=== PATIENT | male | born 1935 | race African-American/Black ===

== ENCOUNTER 2019-06-17 22:54 | Emergency (ER) | payer OTHER, MEDICARE ==
[~2019-06-17] VITALS: Ht 175.3 cm; Wt 83.9 kg
[2019-06-17] MEDS ORDERED: QUETIAPINE FUMA50 MG ORAL (23:06)
[2019-06-17] MEDS ORDERED: METFORMIN HCL500 M1 ORAL (23:06)
[2019-06-17] MEDS ORDERED: ATORVASTATIN CA40 MG ORAL (23:06)
[2019-06-17] MEDS ORDERED: FLOMAX0.4 MG ORAL (23:06)
[2019-06-17] MEDS ORDERED: LEXAPRO5 MG ORAL (23:06)
[2019-06-17] MEDS ORDERED: CARVEDILOL3.125 MG ORAL (23:06)
[2019-06-17] MEDS ORDERED: WARFARIN SODIUM2 MG ORAL (23:07)
--- NOTE | 2019-06-17 23:14 | Emergency Room Report ---
History of Present Illness General Chief Complaint: Generalized Weakness Source: Patient, Medical Record Present Illness HPI Is an 83-year-old male with a history of major depressive disorder, diabetes, CAD and heart failure. He resides in assisted living. He presents with chief complaint of chest pain. Initially he was yelling in his room and staff checked on him. He complained of chest pain to them. They called 911. He denies any chest pain to the building serviceman. Here he complained of headache. He said is been ongoing for a while. No trauma. Denies any fever or chills. Also with a cough. Told building serviceman that he has body pain. History is vague in this patient. He is a poor historian. He does not know what is taking other than warfarin. Unable to give me duration of his symptoms other than is been going on for a while. He has no trauma. He has no focal deficit. Allergies: Coded Allergies: LOVASTATIN (Verified Allergy, Unknown, 06/17/19) Uncoded Allergies: NSAIDS (Allergy, Unknown, 06/17/19) Patient History Past Medical History: see triage record, old chart reviewed, HTN, CAD Past Surgical History: other Pertinent Family History: none Social History: Denies: smoking Immunizations: other Reviewed Nursing Documentation: PMH: Agreed; PSxH: Agreed Nursing Documentation-PMH Hx Cardiac Problems: Yes - ahterosclerosis of aorta, CHF with reduced LVEF Hx Diabetes: Yes History Of Psychiatric Problem: Yes - depression Review of Systems Eye: Denies: eye pain, blurred vision ENT: Denies: ear pain, nose congestion, throat swelling Respiratory: Denies: cough, shortness of breath Cardiovascular: Reports: chest pain; Denies: palpitations Gastrointestinal: Denies: abdominal pain, diarrhea, nausea, vomiting Musculoskeletal: Denies: back pain, joint pain Skin: Denies: rash Neurological: Reports: headache; Denies: numbness Endocrine: Denies: increased thirst, increased urine Hematologic/Lymphatic: Denies: easy bruising All Other Systems: limited - Poor historian Physical Exam Vital Signs Date Time Temp Pulse Resp B/P (MAP) Pulse Ox O2 Delivery O2 Flow Rate FiO2 06/17/19 22:56 98.1 66 18 158/87 (110) 99 Room Air Vitals with high blood pressure Sp02 EP Interpretation: reviewed, normal General Appearance: well appearing, no apparent distress, alert Head: normocephalic, atraumatic Eyes: bilateral eye PERRL, bilateral eye EOMI ENT: hearing grossly normal, normal pharynx Neck: full range of motion, supple, no meningismus Respiratory: chest non-tender, lungs clear, normal breath sounds Cardiovascular #1: regular rate, rhythm, no murmur Gastrointestinal: normal bowel sounds, non tender, no mass, no organomegaly, no bruit, non-distended Musculoskeletal: back normal, normal range of motion, gait/station normal Psychiatric: mood/affect normal Medical Decision Making Diagnostic Impression: Primary Impression: Episode of generalized weakness Additional Impression: Headache Qualified Codes: G44.209 - Tension-type headache, unspecified, not intractable ER Course Patient complained of generalized weakness and headache. Markable. INR therapeutic. No evidence of ACS, PE, dissection. No evidence of infection. I suspect this may be more depression related. Headache better. Will discharge home. EKG Diagnostic Results Rate: normal Rhythm: NSR ST Segments: no acute changes Rhythm Strip Diag. Results EP Interpretation: yes Rate: 65 Rhythm: NSR, no PVC's, no ectopy Chest X-Ray Diagnostic Results Chest X-Ray Diagnostic Results : Chest X-Ray Ordered: Yes # of Views/Limited/Complete: 1 View Indication: Chest Pain EP Interpretation: Yes Interpretation: no consolidation, no effusion, no pneumothorax, no acute cardiopulmonary disease Impression: No acute disease Electronically Signed by: Hernandez Faria MD CT/MRI/US Diagnostic Results CT/MRI/US Diagnostic Results : Imaging Test Ordered: CT head Impression Read by radiologist. Negative. Last Vital Signs Date Time Temp Pulse Resp B/P (MAP) Pulse Ox O2 Delivery O2 Flow Rate FiO2 06/17/19 22:56 98.1 66 18 158/87 (110) 99 Room Air Status: improved Disposition: HOME, SELF-CARE Condition: Stable Scripts Acetaminophen With Codeine (T#3) (TYLENOL #3 TAB*) Y Tab 1 TAB ORAL Q8H PRN for For Pain, #20 TAB Prov: Hernandez Faria MD 06/18/19 Additional Instructions: Follow up with in 7 days. Return if worse. Hernandez Faria MD Jun 17, 2019 23:14
[2019-06-17] MEDS ORDERED: HYDROcodone/Acetamin 5/325 tab ORAL ONE (23:15)
--- NOTE | 2019-06-17 23:15 | NUR ---
ED Nurse Note: Recieved pt BIBA from SNF with c/o headache for past 3 days, was also reported chest pain but pt constantly denies, denied to ambulance also, pt is awake, alert and orienteed x 4, pt rates paina t 10/10 and states its throbbing, pt states he is concerned because he couldnt get meds because he is on coumadin and his sister from [facility] recently, pt denies chest pain, sob or any other complaints, tp gowned, placed on monitoring, and IV line with labs done, will resume care as ordered and closely monitor.
[2019-06-17 23:45] LABS: BASOPHILS % (AUTO) 1.2 % (0.0-2.0); EOSINOPHILS % (AUTO) 3.7 % (0.0-3.0); HEMATOCRIT 33.1 % (42.0-52.0); HEMOGLOBIN 11.2 G/DL (14.2-18.0); LYMPHOCYTES % (AUTO) 25.9 % (20.0-45.0); MEAN CORPUSCULAR VOLUME 93 FL (80-99); MONOCYTES % (AUTO) 13.4 % (1.0-10.0); NEUTROPHILS % (AUTO) 55.8 % (45.0-75.0); PLATELET COUNT 205 K/UL (150-450); RED BLOOD COUNT 3.56 M/UL (4.70-6.10); RED CELL DISTRIBUTION WIDTH 13.1 % (11.6-14.8); WHITE BLOOD COUNT 7.9 K/UL (4.8-10.8)
[2019-06-17 23:45] LABS: APPEARANCE,URINE CLEAR; BILIRUBIN, URINE NEGATIVE (NEGATIVE); COLOR,URINE PALE YELLOW; GLUCOSE, URINE (UA) NEGATIVE (NEGATIVE); KETONES,URINE NEGATIVE (NEGATIVE); LEUKOCYTE ESTERASE ,URINE NEGATIVE (NEGATIVE); NITRITE,URINE NEGATIVE (NEGATIVE); PH,URINE 5 (4.5-8.0); PROTEIN,URINE NEGATIVE (NEGATIVE); UROBILINOGEN,URINE NORMAL MG/DL (0.0-1.0)
[2019-06-17 23:55] VITALS: BP 146/78
[2019-06-17 23:57] LABS: ANION GAP 13 mmol/L (5-15); BLOOD UREA NITROGEN 29 mg/dL (7-18); CALCIUM 8.5 MG/DL (8.5-10.1); CARBON DIOXIDE 22 MMOL/L (21-32); CHLORIDE 109 MMOL/L (98-107); POTASSIUM 4.5 MMOL/L (3.5-5.1); SODIUM 144 MMOL/L (136-145)
--- NOTE | 2019-06-18 00:02 | Diagnostic Imaging Report ---
Indications: Headache for one day Technique: Spiral acquisitions obtained through the brain. Angled axial and coronal 5 x 5 mm slices were reconstructed. Total dose length product 1179 mGycm. CTDI vol(s) 53 mGy. Dose reduction achieved using automated exposure control Comparison: None. Findings: There is age-related enlargement of the ventricles and extra axial CSF spaces. There is considerable periventricular deep white matter low-attenuation, consistent with chronic microvascular ischemic changes. Old lacunar infarcts are seen in the frontal and parietal deep white matter bilaterally. There is also an old lacunar infarct within the right basal ganglia. Old infarct is seen in the left cerebellar hemisphere. No acute intracranial hemorrhage or edema. No mass effect nor midline shift. Visualized orbits and sinuses are unremarkable. There is minimal mastoid disease on the right. The calvarium is intact Impression: Chronic and age-related changes Multiple old infarcts, as described Negative for acute intracranial bleed or mass effect Incidental finding minimal right mastoid disease This agrees with the preliminary interpretation provided overnight by [facility] service. The CT scanner at [facility] is accredited by the [employer] and the scans are performed using protocols designed to limit radiation exposure to as low as reasonably achievable to attain images of sufficient resolution adequate for diagnostic evaluation.
[2019-06-18 00:08] LABS: ALANINE AMINOTRANSFERASE 23 U/L (12-78); ALBUMIN 3.4 G/DL (3.4-5.0); ALBUMIN/GLOBULIN RATIO 0.9 (1.0-2.7); ALKALINE PHOSPHATASE 72 U/L (46-116); ASPARTATE AMINO TRANSFERASE 17 U/L (15-37); BILIRUBIN,TOTAL 0.2 MG/DL (0.2-1.0)
--- NOTE | 2019-06-18 00:34 | NUR ---
[facility]-attempted to contact someone- no one picked up the phone, call goes to voicemail. Message left regarding pastient is going back by ambulance.If any question- call back number left on voicemai..
[2019-06-18] MEDS ORDERED: ACETAMINOPHEN-1 EAC1 ORAL (00:41)
[2019-06-18 01:40] VITALS: BP 149/69
--- NOTE | 2019-06-18 01:40 | NUR ---
ER DISCHARGE NOTE: Patient is cleared to be discharged per ERMD, pt is aox4, on room air, with stable vital signs. pt was given dc and prescription instructions, pt was able to verbalize understanding, pt id band and iv site removed without complications. pt is transported out of the ED via BLS transport. pt took all belongings.
--- NOTE | 2019-06-18 09:11 | Diagnostic Imaging Report ---
Indication: Shortness of breath Technique: One view of the chest Comparison: none Findings: Inspiration is suboptimal. Lungs and pleural spaces are clear. Heart size is normal. Impression: No acute process
== END 2019-06-18 01:40 | disposition home or self-care (01) ==
LOC: EDBD 22:54 → EMR 23:15
DX: R53.1 Weakness (principal); G44.209 Tension-type headache, unspecified, not intractable; I11.9 Hypertensive heart disease without heart failure; E11.9 Type 2 diabetes mellitus without complications; F32.9 Major depressive disorder, single episode, unspecified
CPT/HCPCS: 36415; 70450; 71045; 80053; 81003; 83880; 84484; 85025; 85610; 85730; 93005; 99284

== ENCOUNTER 2019-12-10 10:43 | Emergency (ER) | payer MEDICARE, OTHER ==
[~2019-12-10] VITALS: Ht 182.9 cm; Wt 79.4 kg
[~2019-12-10 10:43] MED LIST: ACETAMINOPHEN-1 EAC1 ORAL; ATORVASTATIN CA40 MG ORAL; CARVEDILOL3.125 MG ORAL; FLOMAX0.4 MG ORAL; LEXAPRO5 MG ORAL; METFORMIN HCL500 M1 ORAL; QUETIAPINE FUMA50 MG ORAL; WARFARIN SODIUM2 MG ORAL
[2019-12-10] MEDS ORDERED: ESCITALOPRAM OX10 MG ORAL (10:46)
[2019-12-10 10:50] VITALS: BP 130/80
[2019-12-10] MEDS ORDERED: LORazepam Inj 2mg/ml 1ml IV ONE (11:45)
--- NOTE | 2019-12-10 12:08 | Diagnostic Imaging Report ---
Indication: Altered mental status Technique: spiral acquisitions obtained through the brain. Angled axial and coronal 5 x 5 mm slices were reconstructed. No IV contrast utilized. Radiation dose was minimized using automated exposure control Total dose length product 1018 mGycm. CTDIvol(s) 53 mGy Comparison: 06/17/2019 FINDINGS: No acute hemorrhage or edema. No mass effect or midline shift. There is age-related enlargement of the ventricles and extra axial CSF spaces. There is periventricular deep white matter ischemic change. Normal duque-white differentiation. Visualized orbits are unremarkable. Visualized sinuses are unremarkable. Intact calvarium. Oh lacunar infarcts are seen in the right hemphill radiata, left hemphill radiata and anterior left basal ganglia. Findings are unchanged IMPRESSION: Chronic and age-related changes. Negative for acute intracranial bleed or mass effect The CT scanner at [facility] is accredited by the [employer] and the scans are performed using protocols designed to limit radiation exposure to as low as reasonably achievable to attain images of sufficient resolution adequate for diagnostic evaluation
--- NOTE | 2019-12-10 12:10 | Diagnostic Imaging Report ---
Indication: Shortness of breath Technique: One view of the chest Comparison: 06/17/2019 Findings: The right costophrenic angle is cut off exam. Per technologist, patient did not wish to have the exam repeated. There is slight blunting of left costophrenic sulcus. The lung and pleural spaces are otherwise clear. The heart is borderline enlarged. Impression: Possible small left pleural effusion No acute process otherwise
[2019-12-10 12:46] LABS: ANION GAP 9 mmol/L (5-15); BLOOD UREA NITROGEN 20 mg/dL (7-18); CALCIUM 8.4 MG/DL (8.5-10.1); CARBON DIOXIDE 28 MMOL/L (21-32); CHLORIDE 104 MMOL/L (98-107); POTASSIUM 4.8 MMOL/L (3.5-5.1); SODIUM 141 MMOL/L (136-145)
[2019-12-10 12:49] LABS: BASOPHILS % (AUTO) 0.9 % (0.0-2.0); EOSINOPHILS % (AUTO) 1.8 % (0.0-3.0); HEMATOCRIT 40.4 % (42.0-52.0); HEMOGLOBIN 12.1 G/DL (14.2-18.0); LYMPHOCYTES % (AUTO) 28.4 % (20.0-45.0); MEAN CORPUSCULAR VOLUME 100 FL (80-99); NEUTROPHILS % (AUTO) 57.8 % (45.0-75.0); PLATELET COUNT 238 K/UL (150-450); RED BLOOD COUNT 4.05 M/UL (4.70-6.10); RED CELL DISTRIBUTION WIDTH 13.7 % (11.6-14.8); WHITE BLOOD COUNT 7.8 K/UL (4.8-10.8)
[2019-12-10 12:51] LABS: ALANINE AMINOTRANSFERASE 18 U/L (12-78); ALBUMIN 3.6 G/DL (3.4-5.0); ALBUMIN/GLOBULIN RATIO 0.9 (1.0-2.7); ALKALINE PHOSPHATASE 71 U/L (46-116); ASPARTATE AMINO TRANSFERASE 16 U/L (15-37); BILIRUBIN,TOTAL 0.3 MG/DL (0.2-1.0); CKMB 1.2 NG/ML (0.0-3.6); CREATINE KINASE 113 U/L (26-308)
[2019-12-10 13:51] LABS: APPEARANCE,URINE CLEAR; BILIRUBIN, URINE NEGATIVE (NEGATIVE); COLOR,URINE YELLOW; GLUCOSE, URINE (UA) NEGATIVE (NEGATIVE); KETONES,URINE NEGATIVE (NEGATIVE); NITRITE,URINE NEGATIVE (NEGATIVE); PH,URINE 5 (4.5-8.0); PROTEIN,URINE NEGATIVE (NEGATIVE)
[2019-12-10 13:52] LABS: LEUKOCYTE ESTERASE ,URINE 1+ (NEGATIVE); UROBILINOGEN,URINE NORMAL MG/DL (0.0-1.0)
--- NOTE | 2019-12-10 14:02 | Emergency Room Report ---
History of Present Illness General Chief Complaint: Altered Level of Consciousness Source: Medical Record, EMS Present Illness HPI This patient is brought from assisted living facility. Patient became agitated and aggressive towards staff. The patient himself is agitated and has no specific complaints. He states I want to go home. The patient has a history of depression, diabetes and heart failure. There are no other complaints. Allergies: Coded Allergies: LOVASTATIN (Verified Allergy, Unknown, 06/17/19) Uncoded Allergies: NSAIDS (Allergy, Unknown, 06/17/19) COVID-19 Screening Contact w/high risk pt: No Experienced COVID-19 symptoms?: No COVID-19 Testing performed BASKET MENDER: No Patient History Past Medical History: see triage record, DM, CAD, CHF, psych hx Social History: Denies: smoking, alcohol use, drug use Reviewed Nursing Documentation: PMH: Agreed; PSxH: Agreed Nursing Documentation-PMH Hx Cardiac Problems: Yes Hx Hypertension: Yes - high cholesterol Hx Diabetes: Yes History Of Psychiatric Problem: Yes - depression Hx Neurological Problems: Yes - dementia Review of Systems All Other Systems: negative except mentioned in HPI Physical Exam Vital Signs Date Time Temp Pulse Resp B/P (MAP) Pulse Ox O2 Delivery O2 Flow Rate FiO2 12/10/19 10:36 97.9 78 18 130/80 (97) 98 Room Air Sp02 EP Interpretation: reviewed, normal General Appearance: no apparent distress, alert, GCS 15, non-toxic Head: normocephalic, atraumatic Eyes: bilateral eye normal inspection ENT: hearing grossly normal, no angioedema, normal voice Neck: normal inspection, full range of motion Respiratory: chest non-tender, lungs clear, normal breath sounds, no respiratory distress, no retraction, no accessory muscle use, speaking full sentences Cardiovascular #1: regular rate, rhythm, no edema Gastrointestinal: normal bowel sounds, non tender, soft, non-distended, no guarding, no rebound Rectal: deferred Musculoskeletal: back normal, normal range of motion, gait/station normal, non- tender Neurologic: alert, motor strength/tone normal, responsive, speech normal, no focal defects Psychiatric: anxious Medical Decision Making Diagnostic Impression: Primary Impression: Severe dementia ER Course This patient appears to be having exacerbation of his dementia. The assisted living facility is uncomfortable having him at the facility. There is no medical etiology identified. CT of the head is unremarkable. Labs are noncontributory and at this patient's baseline. The patient was combative and agitated during his ED course. He was destructive to the equipment and agitated and "wanting to go home." The patient's dementia needs to be managed and likely this patient needs to be in a geriatric psych lockdown unit. The patient has [facility] insurance and [facility] will arrange transfer to their facility for further evaluation and disposition. This patient was evaluated in the context of the global COVID-19 pandemic, which necessitated consideration that the patient might be at risk for infection with the [id number] virus that causes COVID-19. Institutional protocols and algorithms that pertain to the evaluation of patients at risk for COVID-19 and the state of rapid change based on information released by multiple regulatory bodies including the CDC and federal and state organizations. These policies and algorithms were followed during the patient' s care in the ED. Laboratory Tests Test 12/10/19 11:30 12/10/19 13:07 White Blood Count 7.8 K/UL (4.8-10.8) Red Blood Count 4.05 M/UL (4.70-6.10) L Hemoglobin 12.1 G/DL (14.2-18.0) L Hematocrit 40.4 % (42.0-52.0) L Mean Corpuscular Volume 100 FL (80-99) H Mean Corpuscular Hemoglobin 30.0 PG (27.0-31.0) Mean Corpuscular Hemoglobin Concent 30.1 G/DL (32.0-36.0) L Red Cell Distribution Width 13.7 % (11.6-14.8) Platelet Count 238 K/UL (150-450) Mean Platelet Volume 6.4 FL (6.5-10.1) L Neutrophils (%) (Auto) 57.8 % (45.0-75.0) Lymphocytes (%) (Auto) 28.4 % (20.0-45.0) Monocytes (%) (Auto) 11.0 % (1.0-10.0) H Eosinophils (%) (Auto) 1.8 % (0.0-3.0) Basophils (%) (Auto) 0.9 % (0.0-2.0) Sodium Level 141 MMOL/L (136-145) Potassium Level 4.8 MMOL/L (3.5-5.1) Chloride Level 104 MMOL/L (98-107) Carbon Dioxide Level 28 MMOL/L (21-32) Anion Gap 9 mmol/L (5-15) Blood Urea Nitrogen 20 mg/dL (7-18) H Creatinine 2.0 MG/DL (0.55-1.30) H Estimated Glomerular Filtration Rate 38.9 mL/min (>60) Glucose Level 97 MG/DL (74-106) Lactic Acid Level 2.00 mmol/L (0.4-2.0) Calcium Level 8.4 MG/DL (8.5-10.1) L Total Bilirubin 0.3 MG/DL (0.2-1.0) Aspartate Amino Transferase (AST) 16 U/L (15-37) Alanine Aminotransferase (ALT) 18 U/L (12-78) Alkaline Phosphatase 71 U/L (46-116) Total Creatine Kinase 113 U/L (26-308) Creatine Kinase MB 1.2 NG/ML (0.0-3.6) Creatine Kinase MB Relative Index 1.0 Troponin I 0.000 ng/mL (0.000-0.056) Total Protein 7.7 G/DL (6.4-8.2) Albumin 3.6 G/DL (3.4-5.0) Globulin 4.1 g/dL Albumin/Globulin Ratio 0.9 (1.0-2.7) L Urine Color Yellow Urine Appearance Clear Urine pH 5 (4.5-8.0) Urine Specific [place] 1.010 (1.005-1.035) Urine Protein Negative (NEGATIVE) Urine Glucose (UA) Negative (NEGATIVE) Urine Ketones Negative (NEGATIVE) Urine Blood Negative (NEGATIVE) Urine Nitrite Negative (NEGATIVE) Urine Bilirubin Negative (NEGATIVE) Urine Urobilinogen Normal MG/DL (0.0-1.0) Urine Leukocyte Esterase 1+ (NEGATIVE) H Urine RBC Pending Urine WBC Pending Urine Squamous Epithelial Cells Pending Urine Bacteria Pending EKG Diagnostic Results Rate: normal Rhythm: NSR ST Segments: no acute changes Rhythm Strip Diag. Results EP Interpretation: yes Rate: 60's Rhythm: NSR, no PVC's, no ectopy Chest X-Ray Diagnostic Results Chest X-Ray Diagnostic Results : Chest X-Ray Ordered: Yes # of Views/Limited/Complete: 1 View Indication: Other EP Interpretation: Yes Interpretation: no consolidation, no effusion, no pneumothorax, no acute cardiopulmonary disease Impression: No acute disease Electronically Signed by: Mari Porras DO CT/MRI/US Diagnostic Results CT/MRI/US Diagnostic Results : Imaging Test Ordered: CT head Impression No acute findings. Specifically no intracranial bleed, mass effect or edema. See official report. Last Vital Signs Date Time Temp Pulse Resp B/P (MAP) Pulse Ox O2 Delivery O2 Flow Rate FiO2 12/10/19 10:50 78 18 Room Air 12/10/19 10:50 97.9 130/80 100 Disposition: SHORT-TERM HOSP Condition: Stable Referrals: [facility] (PCP) Mari Porras DO Dec 10, 2019 14:02
[2019-12-10 14:08] VITALS: BP 126/80
[2019-12-10 16:09] VITALS: BP 135/78
[2019-12-10 18:27] VITALS: BP 135/78
== END 2019-12-10 18:47 | disposition short-term general hospital (02) ==
LOC: EDBD 10:43 → EMR 12:00
DX: F03.90 Unspecified dementia, unspecified severity, without behavioral disturbance, psychotic disturbance, mood disturbance, and anxiety (principal); Z88.6 Allergy status to analgesic agent; E11.9 Type 2 diabetes mellitus without complications; E78.00 Pure hypercholesterolemia, unspecified; I50.9 Heart failure, unspecified; I25.10 Atherosclerotic heart disease of native coronary artery without angina pectoris; F32.9 Major depressive disorder, single episode, unspecified
CPT/HCPCS: 36415; 70450; 71045; 80053; 81003; 82550; 82553; 83605; 84484; 85025; 87040; 93005; 96374; 99284; U0002

== ENCOUNTER 2020-02-02 22:16 | Emergency (ER) | payer OTHER ==
[~2020-02-02] VITALS: Ht 185.4 cm; Wt 117.9 kg
[2020-02-02 22:16] VITALS: BP 188/105
[~2020-02-02 22:16] MED LIST changes: +DiphenhydrAMINE 50mg/ml Inj IVP ONE; +EPINEPHrine 1mg/1ml Amp IM ONE; +ESCITALOPRAM OX10 MG ORAL; +Solu-MEDROL 125mg Inj IVP ONE; +Tranexamic Acid 500 MG in NS 55 ML IVPB ONE
--- NOTE | 2020-02-02 22:16 | NUR ---
ED Nurse Note: Pt brought in by ambulance [address] [facility] c/o AMS and no tone in all extremities. Per EMS, LWK was 2100. Pt unable to veberlize. accompanied patient down to imaging with associate professor of radiology and [facility] ems. patient transported from [facility] to [facility] without incident. changed into gown; attached to monitor. vitals stable. iv access established. blood, initial lactic, blood cultures, urine, covid mrsa vre cre swab collected; sent down to lab. all safety measures met.
--- NOTE | 2020-02-02 22:18 | NUR ---
Nurse Note: Code stroke called at 2210. Radiology at pt side, went to CT with primary RN. 123 BS
[2020-02-02] MEDS ORDERED: DiphenhydrAMINE 50mg/ml Inj ONE (22:38)
[2020-02-02] MEDS ORDERED: Solu-MEDROL 125mg Inj ONE (22:38)
[2020-02-02] MEDS ORDERED: EPINEPHrine 1mg/1ml Amp ONE (22:38)
--- NOTE | 2020-02-02 22:44 | NUR ---
ED Nurse Note: rt at bedside for abg
--- NOTE | 2020-02-02 22:46 | Emergency Room Report ---
History of Present Illness General Chief Complaint: Stroke Symptoms Present Illness HPI 84-year-old male with history of schizophrenia on Seroquel, on warfarin for unknown reason, here with mental status and tongue swelling. Patient has a history of hypertension and he is on lisinopril. Patient reportedly was last seen normal at approximately 9 PM. When the nurse at the nursing facility went to check on the patient at about 930 they said that he was altered and had notable tongue swelling. Patient is unable to follow commands secondary to his altered mental status. Allergies: Coded Allergies: LOVASTATIN (Verified Allergy, Unknown, 06/17/19) Uncoded Allergies: NSAIDS (Allergy, Unknown, 06/17/19) COVID-19 Screening Contact w/high risk pt: No Experienced COVID-19 symptoms?: No COVID-19 Testing performed KITCHEN PORTER: No Nursing Documentation-PMH Hx Hypertension: Yes - high cholesterol Hx Diabetes: Yes - type 2 Hx Neurological Problems: Yes - dementia Review of Systems All Other Systems: limited - AMS Physical Exam Vital Signs Date Time Temp Pulse Resp B/P (MAP) Pulse Ox O2 Delivery O2 Flow Rate FiO2 02/02/20 22:10 16 98 Room Air Sp02 EP Interpretation: reviewed, normal Head: normocephalic, atraumatic Eyes: bilateral eye normal inspection, bilateral eye PERRL ENT: other - Severe diffuse tongue swelling. Drooling Neck: full range of motion, supple/symm/no masses Respiratory: chest non-tender, lungs clear, normal breath sounds Cardiovascular #1: regular rate, rhythm, no edema Cardiovascular #2: 2+ carotid (R), 2+ carotid (L), 2+ radial (R), 2+ radial (L), 2+ dorsalis pedis (R), 2+ dorsalis pedis (L) Gastrointestinal: normal bowel sounds, non tender, soft, non-distended, no guarding, no rebound Rectal: deferred Genitourinary: normal inspection, no CVA tenderness Musculoskeletal: back normal, calf tenderness, gait/station normal, non-tender Neurologic: other - Nonverbal, extraocular movements intact in all directions. Patient able to hold arms above head without any apparent difficulty. However will not squeeze overall on command. Able to lift legs off the bed. NIH stroke scale 11 Psychiatric: other - Appears altered, confused Lymphatic: no adenopathy Medical Decision Making Diagnostic Impression: Primary Impression: HALIE inhibitor-aggravated angioedema Additional Impressions: AMS (altered mental status) Angio-edema ER Course Laboratory Tests Test 02/02/20 22:15 02/02/20 22:30 02/02/20 22:40 White Blood Count 11.1 K/UL (4.8-10.8) H Red Blood Count 4.08 M/UL (4.70-6.10) L Hemoglobin 12.6 G/DL (14.2-18.0) L Hematocrit 40.4 % (42.0-52.0) L Mean Corpuscular Volume 99 FL (80-99) Mean Corpuscular Hemoglobin 31.0 PG (27.0-31.0) Mean Corpuscular Hemoglobin Concent 31.2 G/DL (32.0-36.0) L Red Cell Distribution Width 14.0 % (11.6-14.8) Platelet Count 229 K/UL (150-450) Mean Platelet Volume 6.8 FL (6.5-10.1) Neutrophils (%) (Auto) 61.0 % (45.0-75.0) Lymphocytes (%) (Auto) 24.2 % (20.0-45.0) Monocytes (%) (Auto) 10.5 % (1.0-10.0) H Eosinophils (%) (Auto) 3.2 % (0.0-3.0) H Basophils (%) (Auto) 1.1 % (0.0-2.0) Prothrombin Time 11.4 SEC (9.30-11.50) Prothrombin Time INR 1.0 (0.9-1.1) Activated Partial Thromboplast Time 27 SEC (23-33) Sodium Level 141 MMOL/L (136-145) Potassium Level 4.2 MMOL/L (3.5-5.1) Chloride Level 106 MMOL/L (98-107) Carbon Dioxide Level 26 MMOL/L (21-32) Anion Gap 9 mmol/L (5-15) Blood Urea Nitrogen 23 mg/dL (7-18) H Creatinine 2.2 MG/DL (0.55-1.30) H Estimated Glomerular Filtration Rate 34.8 mL/min (>60) Glucose Level 130 MG/DL (74-106) H Calcium Level 8.3 MG/DL (8.5-10.1) L Total Bilirubin 0.3 MG/DL (0.2-1.0) Aspartate Amino Transferase (AST) 15 U/L (15-37) Alanine Aminotransferase (ALT) 16 U/L (12-78) Alkaline Phosphatase 75 U/L (46-116) Troponin I 0.001 ng/mL (0.000-0.056) Total Protein 6.7 G/DL (6.4-8.2) Albumin 3.4 G/DL (3.4-5.0) Globulin 3.3 g/dL Albumin/Globulin Ratio 1.0 (1.0-2.7) Triglycerides Level 59 MG/DL (30-150) Cholesterol Level 148 MG/DL (< 200) LDL Cholesterol 97 mg/dL (<100) HDL Cholesterol 46 MG/DL (40-60) Cholesterol/HDL Ratio 3.2 (3.3-4.4) L Urine Color Pale yellow Urine Appearance Clear Urine pH 5 (4.5-8.0) Urine Specific Cook 1.010 (1.005-1.035) Urine Protein 1+ (NEGATIVE) H Urine Glucose (UA) Negative (NEGATIVE) Urine Ketones Negative (NEGATIVE) Urine Blood Negative (NEGATIVE) Urine Nitrite Negative (NEGATIVE) Urine Bilirubin Negative (NEGATIVE) Urine Urobilinogen Normal MG/DL (0.0-1.0) Urine Leukocyte Esterase Negative (NEGATIVE) Urine RBC 0 /HPF (0 - 0) Urine WBC 0-2 /HPF (0 - 0) Urine Squamous Epithelial Cells None /LPF (NONE/OCC) Urine Bacteria Occasional /HPF (NONE) Arterial Blood pH 7.351 (7.350-7.450) Arterial Blood Partial Pressure CO2 36.8 mmHg (35.0-45.0) Arterial Blood Partial Pressure O2 75.8 mmHg (75.0-100.0) Arterial Blood HCO3 19.9 mmol/L (22.0-26.0) L Arterial Blood Oxygen Saturation 94.8 % (95-100) L Arterial Blood Base Excess -5.0 (-2-2) L Feliz Test Positive Microbiology Date/Time Source Procedure Growth Status 02/02/20 22:15 Nasopharynx SARS-CoV-2 RdRp Gene Assay - Final Complete EKG: NSR, no ischemia, intervals WNL. No ectopy Rhythm strip: patient monitored for arrhythmias - no malignant dysrhythmias, runs of PVCs, nor pauses noted CT head: No acute intracranial process. 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 Chest x-ray: No infiltrate/effusion. Mediastinum within normal limits Total critical care time: Approximately 65 minutes Due to a high probability of clinically significant, life threatening deterioration, the patient required the highest level of preparedness to intervene emergently and I personally spent this critical care time directly and personally managing the patient. This critical care time included obtaining a history, examining the patient, pulse oximetry, ordering and reviewing studies, ordering treatments, evaluating response to treatment and updating management plan as needed, frequent reassessment and discussion with other providers as well as arranging for ultimate disposition. This critical to care time was performed to assess and manage the high probability of life-threatening deterioration that could result in multiorgan failure. This critical care time is separate from the separately billable procedures and treating other patients. 84-year-old male here with angioedema and altered mental status. When patient arrived to the emergency department he had a severe angioedema of his tongue diffusely with resultant drooling and inability to speak. Review of patient's medications showed lisinopril among other medicines. This was presumed to be HALIE inhibitor induced angioedema versus allergic reaction induced angioedema. Patient was unable to phonate whatsoever secondary to his angioedema. He was initially following some commands and last known well was about 1.5 hours prior to coming to the emergency department. Code stroke was immediately called on arrival. Head CT was negative. EKG was unremarkable. When patient came back from CT he immediately was given intramuscular epinephrine, IV Benadryl, IV methylprednisolone and 2 units of FFP were then given once ready for treatment of HALIE inhibitor induced angioedema. Patient was observed in the emergency department for several hours and had gradual fast improvement of his tongue swelling. He was able to then speak and follow commands normally. Patient said that he felt much improved. Patient is a [facility] patient, I spoke with Dr. Rudolph at [facility] who advised that the patient be evaluated by their covering physician Dr. Amadou rahman in the emergency department to determine whether the patient was stable for transfer. The physician evaluate the patient here in the emergency department and noted the vast improvement of the patient's angioedema and therefore deemed the patient stable for transfer. Patient to be transferred to [facility]. Last Vital Signs Date Time Temp Pulse Resp B/P (MAP) Pulse Ox O2 Delivery O2 Flow Rate FiO2 02/02/20 22:10 16 98 Room Air Alfredo Dunbar M.D. Feb 02, 2020 22:46
[2020-02-02 23:00] VITALS: BP 162/74
[2020-02-02 23:03] LABS: APPEARANCE,URINE CLEAR; BILIRUBIN, URINE NEGATIVE (NEGATIVE); COLOR,URINE PALE YELLOW; GLUCOSE, URINE (UA) NEGATIVE (NEGATIVE); KETONES,URINE NEGATIVE (NEGATIVE); LEUKOCYTE ESTERASE ,URINE NEGATIVE (NEGATIVE); NITRITE,URINE NEGATIVE (NEGATIVE); PH,URINE 5 (4.5-8.0); PROTEIN,URINE 1+ (NEGATIVE); UROBILINOGEN,URINE NORMAL MG/DL (0.0-1.0)
[2020-02-02 23:04] LABS: BASOPHILS % (AUTO) 1.1 % (0.0-2.0); EOSINOPHILS % (AUTO) 3.2 % (0.0-3.0); HEMATOCRIT 40.4 % (42.0-52.0); HEMOGLOBIN 12.6 G/DL (14.2-18.0); LYMPHOCYTES % (AUTO) 24.2 % (20.0-45.0); MEAN CORPUSCULAR VOLUME 99 FL (80-99); MONOCYTES % (AUTO) 10.5 % (1.0-10.0); PLATELET COUNT 229 K/UL (150-450); RED BLOOD COUNT 4.08 M/UL (4.70-6.10); WHITE BLOOD COUNT 11.1 K/UL (4.8-10.8)
[2020-02-02 23:15] LABS: ANION GAP 9 mmol/L (5-15); BLOOD UREA NITROGEN 23 mg/dL (7-18); CALCIUM 8.3 MG/DL (8.5-10.1); CARBON DIOXIDE 26 MMOL/L (21-32); CHLORIDE 106 MMOL/L (98-107); CREATININE 2.2 MG/DL (0.55-1.30); POTASSIUM 4.2 MMOL/L (3.5-5.1); SODIUM 141 MMOL/L (136-145)
[2020-02-02 23:24] LABS: ALANINE AMINOTRANSFERASE 16 U/L (12-78); ALBUMIN 3.4 G/DL (3.4-5.0); ALKALINE PHOSPHATASE 75 U/L (46-116); ASPARTATE AMINO TRANSFERASE 15 U/L (15-37); BILIRUBIN,TOTAL 0.3 MG/DL (0.2-1.0); CHOLESTEROL 148 MG/DL (< 200); HDL CHOLESTEROL 46 MG/DL (40-60); TRIGLYCERIDES 59 MG/DL (30-150)
[2020-02-03] VITALS: BP 153/72
[2020-02-03 00:40] VITALS: BP 176/96
--- NOTE | 2020-02-03 00:40 | NUR ---
ED Nurse Note: nicole hayes at bedside. pretransfusion vitals stable see transfusion form. initiated first unit of FFP. will remain at bedside to monitor for inital 15 min of transfusion
[2020-02-03 00:55] VITALS: BP 147/85
--- NOTE | 2020-02-03 00:55 | NUR ---
ED Nurse Note: initial 15 minutes of transfusion completed; pt free from adverse transfusion reaction; see transfusion form.
[2020-02-03 02:00] VITALS: BP 160/91
--- NOTE | 2020-02-03 02:00 | NUR ---
ED Nurse Note: 1st unit of FFP completed. patient remains free of adverse transfusion reaction. vitals stable; see transfusion form. patient remains stable with no acute distress.
--- NOTE | 2020-02-03 02:08 | NUR ---
ED Nurse Note: report given to ryder villavicencio of [facility] ER. patient to be admitted under the care of sylvia. transportation eta 0230 with [facility] ambulance
[2020-02-03 02:44] VITALS: BP 162/83
[2020-02-03 03:00] VITALS: BP 162/83
--- NOTE | 2020-02-03 03:00 | NUR ---
ED Nurse Note: report given [facility]n ambulance ems. patient to be admitted to [facility]. patient stable for transport. all belongings and transfer packet sent with patient.
--- NOTE | 2020-02-04 06:19 | Diagnostic Imaging Report ---
INDICATION: Chest pain COMPARISON: 12/10/2019. FINDINGS: Single frontal view demonstrates a normal cardiomediastinal silhouette. Calcifications are identified within the thoracic aorta. No focal consolidation or pneumothorax. No pleural effusions. The visualized osseous structures are within normal limits. IMPRESSION: No acute cardiopulmonary disease.
== END 2020-02-03 03:00 | disposition other institution (70) ==
LOC: EDBD 22:16 → EMR 23:00
DX: T78.3XXA Angioneurotic edema, initial encounter (principal); T46.4X5A Adverse effect of angiotensin-converting-enzyme inhibitors, initial encounter; X58.XXXA Exposure to other specified factors, initial encounter; Y92.9 Unspecified place or not applicable; E78.00 Pure hypercholesterolemia, unspecified; I10 Essential (primary) hypertension; E11.9 Type 2 diabetes mellitus without complications; F03.90 Unspecified dementia, unspecified severity, without behavioral disturbance, psychotic disturbance, mood disturbance, and anxiety; F20.9 Schizophrenia, unspecified; Z88.6 Allergy status to analgesic agent; Z79.01 Long term (current) use of anticoagulants
CPT/HCPCS: 36415; 70450; 71045; 80053; 80061; 81003; 82803; 84484; 85025; 85610; 85730; 86850; 86900; 86901; 86927; 87040; 87081; 96365; 96372; 96375; 99291; J0171; J1200; J2930; U0002; 36430